=== PATIENT | male | born 1950 | race Caucasian/White ===

== ENCOUNTER → 2018-11-30 | Outpatient (CLI) | payer OTHER, MEDICARE | LOC: ULTRA 08:35 | DX: I71.4 Abdominal aortic aneurysm, without rupture (principal) ==

== ENCOUNTER → 2019-01-14 | Outpatient (CLI) | payer OTHER, MEDICARE ==
[~2019-01-14] VITALS: Ht 188 cm; Wt 99.8 kg
[~2019-01-14] MED LIST: LEVO-T100 MCG PO; MELOXICAM15 MG PO; NEURONTIN300 MG PO; SUPER THERAVIT1 EACH PO; ZESTRIL10 MG PO
== END | disposition home or self-care (01) ==
LOC: GI 09:26
DX: R19.5 Other fecal abnormalities (principal); K63.5 Polyp of colon; I10 Essential (primary) hypertension; E03.9 Hypothyroidism, unspecified; Z96.641 Presence of right artificial hip joint; Z98.890 Other specified postprocedural states; Z79.899 Other long term (current) drug therapy; Z87.891 Personal history of nicotine dependence
CPT/HCPCS: 62110; 62900